=== PATIENT | female | born 1940 | race Caucasian/White ===

== ENCOUNTER → 2019-02-17 | Outpatient (CLI) | payer MEDICARE, OTHER ==
[~2019-02-17] MED LIST: ATOR20 PO; GLUC500 PO; LEVSOD100 PO; METO25ER PO; OMEP10ER PO; OXYB5ER PO; RXTRAM50 PO; TRAM50 PO; VALS80 PO; WARF3 PO
[2019-02-19 14:10] LABS: Stool Occult Bld Immuno 1 Positive (NEGATIVE); Stool Occult Bld Immuno 2 Positive (NEGATIVE)
== END | disposition home or self-care (01) ==
LOC: LAB 07:35 → LAB SHORT 07:35 → LAB FUT 01-20 16:35
PROVIDERS: Internal Medicine Gastroenterology
DX: Z12.11 Encounter for screening for malignant neoplasm of colon (principal); K57.30 Diverticulosis of large intestine without perforation or abscess without bleeding; Z86.010 Personal history of colon polyps
CPT/HCPCS: 82274

== ENCOUNTER 2019-04-06 12:43 | Day surgery (SDC) | payer MEDICARE, OTHER ==
[~2019-04-06] VITALS: Ht 170.2 cm; Wt 97.8 kg
[~2019-04-06 12:43] MED LIST changes: +CITRACAL D + H1 EACH PO; +CRANBERRY250 MG PO; +Cinnamon500 MG PO; +Coq-10100 MG PO; +DICLO GEL1 EACH TOP; +FISH OIL 500 M1 EACH PO; +Flonase 0.05% N16 GM; +GLUCOSAMINE1000 MG PO; +HYDCHL25 PO; +LO-DOSE ASPIRIN81 MG PO; +LOSA50 PO; +MULTI VITAMIN1 EACH PO; +NEBI10 PO; +OXYB5 PO; +Prilosec Otc20 MG PO
== END 2019-04-06 15:51 | disposition home or self-care (01) ==
LOC: ORSCSDS 12:43
PROVIDERS: Internal Medicine Gastroenterology
PROC: 0DBK8ZX Excision of Ascending Colon, Via Natural or Artificial Opening Endoscopic, Diagnostic (ICD-10-PCS; principal; 2019-04-06 14:00)
PROC: 0DBM8ZX Excision of Descending Colon, Via Natural or Artificial Opening Endoscopic, Diagnostic (ICD-10-PCS; principal; 2019-04-06 14:00)
PROC: 0DB68ZX Excision of Stomach, Via Natural or Artificial Opening Endoscopic, Diagnostic (ICD-10-PCS; principal; 2019-04-06 14:00)
DX: R19.5 Other fecal abnormalities (principal); D12.4 Benign neoplasm of descending colon; D12.2 Benign neoplasm of ascending colon; K21.9 Gastro-esophageal reflux disease without esophagitis; K29.70 Gastritis, unspecified, without bleeding; K57.30 Diverticulosis of large intestine without perforation or abscess without bleeding; G47.33 Obstructive sleep apnea (adult) (pediatric); I10 Essential (primary) hypertension; E03.9 Hypothyroidism, unspecified; E78.5 Hyperlipidemia, unspecified; E11.42 Type 2 diabetes mellitus with diabetic polyneuropathy; Z79.899 Other long term (current) drug therapy; Z79.82 Long term (current) use of aspirin
CPT/HCPCS: 82947; 87081; 88305; J2704; J7120

== ENCOUNTER → 2019-04-21 | Outpatient (CLI) | payer MEDICARE, OTHER | END | disposition home or self-care (01) | LOC: LAB EV 09:36 → LAB SHORT 09:36 | DX: N39.0 Urinary tract infection, site not specified (principal) | CPT/HCPCS: 87077; 87086; 87186 ==

== ENCOUNTER → 2019-07-08 | Outpatient (CLI) | payer MEDICARE, OTHER ==
[2019-07-09 14:12] LABS: Stool Occult Bld Immuno 1 Positive (NEGATIVE); Stool Occult Bld Immuno 2 Positive (NEGATIVE)
== END | disposition home or self-care (01) ==
LOC: LAB SHORT 07:30 → LAB 07:30 → LAB FUT 06-22 14:00
PROVIDERS: Internal Medicine Gastroenterology
DX: R19.5 Other fecal abnormalities (principal)
CPT/HCPCS: 82274

== ENCOUNTER → 2020-02-08 | Outpatient (CLI) | payer MEDICARE, OTHER ==
[2020-02-09 13:53] LABS: Stool Occult Bld Immuno 1 Negative (NEGATIVE); Stool Occult Bld Immuno 2 Negative (NEGATIVE)
== END | disposition home or self-care (01) ==
LOC: LAB EV 10:35
PROVIDERS: Internal Medicine Gastroenterology
DX: R19.5 Other fecal abnormalities (principal)
CPT/HCPCS: 82274

== ENCOUNTER 2022-03-23 16:45 | Emergency (ER) | payer MEDICARE, OTHER ==
[~2022-03-23] VITALS: Ht 170.2 cm; Wt 92.5 kg
[2022-03-23 17:25] LABS: BASOPHILS ABSOLUTE AUTO 0.07 K/mm3 (0.00-0.23); BASOPHILS PERCENT AUTO 1 % (0-2); EOSINOPHILS ABSOLUTE AUTO 0.17 K/mm3 (0.00-0.68); EOSINOPHILS PERCENT AUTO 2 % (0-6); Hemoglobin 15.4 g/dL (11.5-16.0); IMMATURE GRAN ABSOLUTE AUTO 0.02 K/mm3 (0.00-0.10); IMMATURE GRAN PERCENT AUTO 0 % (0-1); LYMPHOCYTES ABSOLUTE AUTO 2.79 K/mm3 (0.84-5.20); LYMPHOCYTES PERCENT AUTO 31 % (21-46); MONOCYTES ABSOLUTE AUTO 0.74 K/mm3 (0.16-1.47); MONOCYTES PERCENT AUTO 8 % (4-13); Mean Corpuscular HGB 29.1 pg (26.0-34.0); Mean Corpuscular HGB Conc 33.5 g/dL (31.5-36.5); Mean Corpuscular Volume 87 fL (80-100); Mean Platelet Volume 10.3 fL (9.1-12.4); NEUTROPHILS ABSOLUTE AUTO 5.33 K/mm3 (1.96-9.15); NEUTROPHILS PERCENT AUTO 58 % (41-73); Platelet Count 272 K/mm3 (150-400); RDW Coefficient Variation 13.1 % (11.7-14.2); RDW Standard Deviation 41.5 fL (35.1-46.3); White Blood Cell Count 9.12 K/mm3 (4.00-11.30)
[2022-03-23 17:52] LABS: Albumin, Blood 3.9 g/dL (3.4-5.0); Bilirubin, Total 0.5 mg/dL (0.1-1.0); Bun/Creatinine Ratio 26.7 (12.0-20.0); Calcium, Blood 10.5 mg/dL (8.5-10.1); Creatinine, Blood 0.56 mg/dL (0.40-1.00); Potassium, Blood 3.6 mmol/L (3.5-5.5); Total Protein, Blood 7.9 g/dL (6.4-8.2)
[2022-03-23] MEDS ORDERED: CHLO25B PO (19:52)
[2022-03-23] MEDS ORDERED: SPIRONOLACTONE25 MG PO (19:53)
[2022-03-23] MEDS ORDERED: ATORVASTATIN CA20 MG PO (19:53)
[2022-03-23] MEDS ORDERED: HIPREX1 G1 PO (19:53)
[2022-03-23] MEDS ORDERED: CARTIA XT PO (19:53)
[2022-03-23] MEDS ORDERED: Microlet1 EACH MC (19:54)
[2022-03-23] MEDS ORDERED: NEBIVOLOL HCL20 MG PO (19:54)
== END 2022-03-23 21:03 | disposition home or self-care (01) ==
LOC: ER 16:45
PROVIDERS: Emergency Medicine
DX: I48.91 Unspecified atrial fibrillation (principal); R06.02 Shortness of breath; I10 Essential (primary) hypertension; E03.9 Hypothyroidism, unspecified; E11.9 Type 2 diabetes mellitus without complications; Z88.5 Allergy status to narcotic agent; Z79.82 Long term (current) use of aspirin; Z79.899 Other long term (current) drug therapy
CPT/HCPCS: 36415; 71046; 80053; 83735; 83880; 84484; 85025; 93971; A9270; J3475; J7030

== ENCOUNTER 2022-04-16 09:24 | Inpatient (IN) | payer MEDICARE, OTHER ==
[~2022-04-16] VITALS: Ht 170.2 cm; Wt 95.8 kg
[~2022-04-16 09:24] MED LIST changes: +ATORVASTATIN CA20 MG PO; +CARTIA XT PO; +CHLO25B PO; +HIPREX1 G1 PO; +Microlet1 EACH MC; +NEBIVOLOL HCL20 MG PO; +SPIRONOLACTONE25 MG PO
[2022-04-16 10:32] LABS: BASOPHILS ABSOLUTE AUTO 0.06 K/mm3 (0.00-0.23); BASOPHILS PERCENT AUTO 0 % (0-2); EOSINOPHILS ABSOLUTE AUTO 0.45 K/mm3 (0.00-0.68); EOSINOPHILS PERCENT AUTO 3 % (0-6); Hematocrit 44.6 % (33.0-51.0); Hemoglobin 15.2 g/dL (11.5-16.0); IMMATURE GRAN ABSOLUTE AUTO 0.05 K/mm3 (0.00-0.10); IMMATURE GRAN PERCENT AUTO 0 % (0-1); LYMPHOCYTES ABSOLUTE AUTO 2.84 K/mm3 (0.84-5.20); LYMPHOCYTES PERCENT AUTO 21 % (21-46); MONOCYTES ABSOLUTE AUTO 0.95 K/mm3 (0.16-1.47); MONOCYTES PERCENT AUTO 7 % (4-13); Mean Corpuscular HGB 29.3 pg (26.0-34.0); Mean Corpuscular HGB Conc 34.1 g/dL (31.5-36.5); Mean Corpuscular Volume 86 fL (80-100); Mean Platelet Volume 10.8 fL (9.1-12.4); NEUTROPHILS ABSOLUTE AUTO 9.33 K/mm3 (1.96-9.15); NEUTROPHILS PERCENT AUTO 68 % (41-73); Platelet Count 290 K/mm3 (150-400); RDW Coefficient Variation 12.9 % (11.7-14.2); RDW Standard Deviation 40.3 fL (35.1-46.3); Red Blood Cell Count 5.18 M/mm3 (3.80-5.20); White Blood Cell Count 13.68 K/mm3 (4.00-11.30)
[2022-04-16 10:53] LABS: Bilirubin, Total 0.7 mg/dL (0.1-1.0); Bun/Creatinine Ratio 45.6 (12.0-20.0); Calcium, Blood 10.5 mg/dL (8.5-10.1); Creatinine, Blood 0.72 mg/dL (0.40-1.00); Globulin, Blood 3.9 g/dL (2.2-4.0); Potassium, Blood 4.2 mmol/L (3.5-5.5); Total Protein, Blood 7.9 g/dL (6.4-8.2)
[2022-04-16] MEDS ORDERED: COREG25 MG PO (11:19)
[2022-04-16] MEDS ORDERED: EUTHYROX75 MCG PO (11:21)
[2022-04-16] MEDS ORDERED: LOSA50 PO (11:21)
[2022-04-16] MEDS ORDERED: OXYB5 PO (11:22)
[2022-04-16] MEDS ORDERED: METF500 PO (11:23)
[2022-04-16] MEDS ORDERED: ELIQUIS5 M2 PO (11:24)
[2022-04-16] MEDS ORDERED: SPIR25 PO (11:25)
[2022-04-16 13:10] LABS: Source, Urine Clean Catch
[2022-04-16 13:18] LABS: Appearance, Urine Clear (Clear); Bilirubin, Urine Neg (Neg); Blood, Urine Neg (Neg); Color, Urine Yellow (P-Yellow); Glucose Qualitative, Urine Neg (Neg); Ketones, Urine Neg (Neg); Leukocyte Esterase, Urine Neg (Neg); Nitrite, Urine Neg (Neg); Protein, Urine Neg (Neg); Specific Gravity, Urine 1.025 (1.003-1.022); Urobilinogen, Urine NORM (Normal)
--- NOTE | 2022-04-16 18:17 | NUR ---
ADMIT/SHIFT SUMMARY: PATIENT ADMIT TO PCU 4. ABLE TO STAND AND TRANSFER WITH ONE PERSON ASSIST AND FRONT WHEEL WALKER. DENIES NUMBNESS/TINGLING. PERRLA. WEARING GLASSES. AT BEDSIDE. ON 1-3L NASAL CANNULA NEEDED. LUNGS SOUNDING CLEAR AND DIM IN BASES. SOB WITH EXERTION OR AFIB EPISODES. TELE SHOWING SINUS TACH ON ADMIT WITH HR 90'S. CONVERTED TO AFIB AROUND 1700 WHEN UP TO BATHROOM. HR 130-140'S DR. GUTIÉRREZ CALLED, SEE EMAR FOR PRN IV METOPROLOL ADMINISTRATION. SYMPTOMATIC WITH HR ELEVATED, PATIENT REPORTS FEELING SOB, CLAMMY, AND AT TIMES DIZZY. LAYING IN BED AT THIS TIME WITH FAN IN PLACE. DENIES ABDOMINAL PAIN/NAUSEA. TOLERATING PO DIET. CALL LIGHT IN REACH. CPAP AT BEDSIDE FOR NOC. DENIES NEEDS AT THIS TIME WILL CONTINUE TO MONITOR AND REPORT OFF TO ONCOMING RN. MED REC COMPLETED WITH PATIENT HOME MED LIST, COPIED AND PLACED IN CHART.
[2022-04-16 18:45] LABS: Free Thyroxine 1.22 ng/dL (0.70-1.60)
[2022-04-16 18:46] LABS: Thyroid Stimulating Hormone 2.39 uIU/mL (0.360-4.800)
--- NOTE | 2022-04-16 20:25 | NUR ---
ASSUMED CARE OF PATIENT AT APPROXIMATELY 1910 FROM ROCIO Sorensen RN. PATIENT ALERT AND ORIENTED X4; PATIENT REPORTS FEELING SHORT OF BREATH DUE TO HEART RATE JUMPING UP TO 130'S WHILE LAYING IN BED; HEART 90-130'S DURING BEDSIDE REPORT; NOT SUSTAINING. PATIENT DENIES CP/PRESSURE, PAIN ELSEWHERE, DIZZINESS, AND NAUSEA. PATIENT'S SPOUSE WAS BEDSIDE DURING SHIFT ASSESSMENT. AFIB ON TELE; OXYGEN SATURATION ABOVE 90% ON 1LPM VIA NC; CPAP IN ROOM FOR SLEEP. IVF INFUSING PER ORDER.
--- NOTE | 2022-04-16 21:54 | NUR ---
CALLED DR. LANDA TO REPORT PATIENT'S HEART RATE MAINTAINING 130-140'S WHILE LAYING IN BED AND BP SOFT 97/64; PRN METOPROLOL NOT AVAILABLE AT THIS TIME AND HOME MEDICATIONS NOT SCHEDULED. ORDERS FOR IV METOPROLOL 5MG Q4 PRN FOR HEART RATE OVER 120; HOLD FOR SBP BELOW 90.
--- NOTE | 2022-04-16 22:18 | NUR ---
PRN IV METOPROLOL GIVEN PER ORDER FOR HEART RATE 130-140'S; LOWERED HEART RATE TO 90-110'S
--- NOTE | 2022-04-16 23:51 | NUR ---
CALLED DR. LANDA TO REPORT THAT PATIENT INCREASED OXYGEN NEEDS FROM 1-2 LPM VIA NC TO 5LPM; NOT TOLERATING CPAP DUE TO MASK COVERING TOO MUCH OF FACE; CRACKLES IN RIGHT BASES OF LUNGS; ELEVATED BNP; NS WAS INFUSING AT 100ML/HR CURRENTLY ON HOLD; PATIENT DENIES CHF AND REPORTS NOT ABLE TO LAY FLAT TO SLEEP; ORDERS FOR 20 OF IV LASIX NOW AND STOP FLUIDS. ALSO NOTIFIED DR. LANDA THAT HEART RATE 90'S THEN 120-130'S AND BACK AND FORTH; NO NEW ORDERS; CONTINUE IV METOPROLOL.
--- NOTE | 2022-04-17 03:52 | NUR ---
PATIENT REPORTS FEELING BETTER; URINATED MULTIPLE TIMES AFTER LASIX; TITRATED FROM 7 TO 4LPM VIA NC; HEART RATE HAS BEEN AVERAGING 80'S AND HEART RATE INCREASES TO LOW 100'S WITH AMBULATION; PATIENT ABLE TO LAY HEAD FLAT AND SLEEP.
[2022-04-17 04:05] LABS: BASOPHILS ABSOLUTE AUTO 0.05 K/mm3 (0.00-0.23); BASOPHILS PERCENT AUTO 0 % (0-2); EOSINOPHILS ABSOLUTE AUTO 0.14 K/mm3 (0.00-0.68); EOSINOPHILS PERCENT AUTO 1 % (0-6); Hematocrit 41.6 % (33.0-51.0); IMMATURE GRAN ABSOLUTE AUTO 0.05 K/mm3 (0.00-0.10); IMMATURE GRAN PERCENT AUTO 0 % (0-1); LYMPHOCYTES ABSOLUTE AUTO 2.69 K/mm3 (0.84-5.20); LYMPHOCYTES PERCENT AUTO 20 % (21-46); MONOCYTES ABSOLUTE AUTO 0.97 K/mm3 (0.16-1.47); MONOCYTES PERCENT AUTO 7 % (4-13); Mean Corpuscular HGB 28.9 pg (26.0-34.0); Mean Corpuscular HGB Conc 33.7 g/dL (31.5-36.5); Mean Corpuscular Volume 86 fL (80-100); Mean Platelet Volume 10.9 fL (9.1-12.4); NEUTROPHILS ABSOLUTE AUTO 9.88 K/mm3 (1.96-9.15); NEUTROPHILS PERCENT AUTO 72 % (41-73); Platelet Count 231 K/mm3 (150-400); RDW Coefficient Variation 13.2 % (11.7-14.2); RDW Standard Deviation 41.1 fL (35.1-46.3); Red Blood Cell Count 4.84 M/mm3 (3.80-5.20); White Blood Cell Count 13.78 K/mm3 (4.00-11.30)
[2022-04-17 04:24] LABS: Albumin, Blood 3.6 g/dL (3.4-5.0); Albumin/Globulin Ratio 1.1 (0.8-1.8); Bilirubin, Total 0.7 mg/dL (0.1-1.0); Bun/Creatinine Ratio 37.1 (12.0-20.0); Calcium, Blood 9.6 mg/dL (8.5-10.1); Creatinine, Blood 0.78 mg/dL (0.40-1.00); Globulin, Blood 3.3 g/dL (2.2-4.0); Potassium, Blood 3.5 mmol/L (3.5-5.5); Total Protein, Blood 6.9 g/dL (6.4-8.2)
--- NOTE | 2022-04-17 05:08 | NUR ---
CALLED DR. YORK TO REPORT TROPONIN 603; CONTINUE TO MONITOR
--- NOTE | 2022-04-17 06:42 | NUR ---
PATIENT SLEPT ABOUT FOUR HOURS LAST NIGHT. CURRENTLY ON ROOM AIR. NO OTHER ACUTE CHANGES TO REPORT.
--- NOTE | 2022-04-17 08:14 | NUR ---
AM NOTE: PATIENT ALERT AND ORIENTED X4. NEURO WNL. DENIES NUMBNESS/TINGLING. OVERALL WEAKNESS. ONE PERSON ASSIST TO BSC. SOB AND HR INCREASES WITH ACTIVITY. ON 1L NASAL CANNULA SATING LOW 90'S. TO BRING IN HOME CPAP TODAY, DOES NOT LIKE HOSPITAL CPAP. TELE SHOWING SINUS RHYTHM THIS AM WITH HR 80'S. DENIES CHEST PAIN/PRESSURE. VITAL SIGNS STABLE. TRACE EDEMA TO BLE. NPO THIS AM PENDING CARDIOLOGY CONSULT. [facility] CALLED THIS AM TO CONFIRM CONSULT. IV FLUSHED AND SALINE LOCKED. PATIENT DENIES OVERALL PAINS. ACHS BLOOD SUGAR CHECKS. CALL LIGHT IN REACH. ABLE TO TURN SELF IN BED. DENIES NEEDS AT THIS TIME. WILL CONTINUE TO MONITOR.
--- NOTE | 2022-04-17 13:18 | NUR ---
Patient is lying in bed and alert. Pt's spouse, Jadiel, is bedside but is [place]. Pt explains about the events that led to her hospital stay and about her fears about not discovering the casue of the heart issues and not being able to stop it from happening in the future. She also shares about her life, their 59 yrs of marriage, their two sons and their strong [employer] carolyn. I normalize her experience, and provide anxiety containment, gentle encouragement and prayer. Pt responds well ans hsows signs of improved peace. I will continue to remain available to pateint and family.
--- NOTE | 2022-04-17 14:20 | NUR ---
CRITCAL TROP OF 809, CALLED INTO DR. GUTIÉRREZ. NO NEW ORDERS. PATIENT REMAINS CHEST PAIN/PRESSURE FREE. VITAL SIGNS STABLE. SLEEPING THROUGHOUT THE AFTERNOON. REMAINS ON 1L NASAL CANNULA. CALL LIGHT IN REACH.
--- NOTE | 2022-04-17 18:01 | NUR ---
SHIFT SUMMARY: NO ACUTE CHANGES. PATIENT REMAINS ALERT AND ORIENTED. NEURO WNL. OVERALL WEAK. USING BSC WITH ONE PERSON ASSIST. REMAINS ON 1L NASAL CANNULA SATING ABOVE 92-94%. SOB WITH EXERTION. DENIES COUGH. TELE REMAINS SINUS RHYTHM WITH HR 80'S. NO EPISODES OF AFIB. DENIES CHEST PAIN/PRESSURE. HR UP TO 110'S, WHEN UP TO BSC. DENIES ABDOMINAL PAIN/NAUSEA. TOLERATING PO DIET. BROUGHT IN HOME CPAP, RESPIRATORY CARE IN TO SET UP. ECHO DONE THIS AM, PENDING RESULTS. TROPS PEAKED AND TRENDING DOWN. SALINE LOCKED. EATING DINNER AT THIS TIME. WILL CONTINUE TO MONITOR AND REPORT OFF.
--- NOTE | 2022-04-18 05:00 | NUR ---
SHIFT SUMMARY PATIENT REMAINS ALERT AND ORIENTED X4. 02 SATS >95% ON 1L VIA NC WHILE AWAKE AND CPAP WHILE SLEEPING. DENIES SOB. PATIENT SR MOST THE NIGHT AT 80s, THIS AM AT 0456, AND BACK TO NSR WITHIN 10 MINUTES. A.FIB AT 110. BP STABLE. DENIES CP/PRESSURE. UP TO BEDSIDE COMMODE WITH 1 PERSON ASSIST. NO ACUTE CHANGES. CALL LIGHT IN REACH.
[2022-04-18 08:07] LABS: BASOPHILS ABSOLUTE AUTO 0.06 K/mm3 (0.00-0.23); BASOPHILS PERCENT AUTO 1 % (0-2); EOSINOPHILS ABSOLUTE AUTO 0.23 K/mm3 (0.00-0.68); EOSINOPHILS PERCENT AUTO 3 % (0-6); Hemoglobin 13.5 g/dL (11.5-16.0); IMMATURE GRAN ABSOLUTE AUTO 0.03 K/mm3 (0.00-0.10); IMMATURE GRAN PERCENT AUTO 0 % (0-1); LYMPHOCYTES PERCENT AUTO 26 % (21-46); MONOCYTES PERCENT AUTO 9 % (4-13); Mean Corpuscular HGB 29.2 pg (26.0-34.0); Mean Corpuscular HGB Conc 33.8 g/dL (31.5-36.5); Mean Corpuscular Volume 86 fL (80-100); NEUTROPHILS ABSOLUTE AUTO 5.83 K/mm3 (1.96-9.15); NEUTROPHILS PERCENT AUTO 62 % (41-73); Platelet Count 207 K/mm3 (150-400); RDW Coefficient Variation 12.9 % (11.7-14.2); RDW Standard Deviation 40.7 fL (35.1-46.3); Red Blood Cell Count 4.63 M/mm3 (3.80-5.20); White Blood Cell Count 9.35 K/mm3 (4.00-11.30)
[2022-04-18 08:11] LABS: Albumin, Blood 3.4 g/dL (3.4-5.0); Albumin/Globulin Ratio 0.9 (0.8-1.8); Bilirubin, Total 0.8 mg/dL (0.1-1.0); Bun/Creatinine Ratio 27.8 (12.0-20.0); Calcium, Blood 9.5 mg/dL (8.5-10.1); Creatinine, Blood 0.61 mg/dL (0.40-1.00); Globulin, Blood 3.7 g/dL (2.2-4.0); Potassium, Blood 3.4 mmol/L (3.5-5.5); Total Protein, Blood 7.1 g/dL (6.4-8.2)
--- NOTE | 2022-04-18 16:46 | NUR ---
CARE ASSUMPTION THIS RN ASSUMED CARE FROM [facility] AT 1500. PATIENT IS ALERT AND OREINTED X4. VSS. TELE AFIB 120S-130S. PATIENT DOES FLIP IN AND OUT OF AFIB TO SR. PATIENT REPORTS NO CHEST PAIN/PRESSURE. STRONG RADIAL AND PEDIS. IRREGULAR PULSE. PATIENT REPORTS NO SHORTNESS OF BREATH. LUNG SOUNDS CLEAR. PATIENT REPORTS NO PAIN. SKIN IS CLEAN DRY AND INTACT. ABD IS SOFT NONTENDER AND ACTIVE. PATIENT IS SYMPTOMATIC WITH AFIB STATES SHE CAN FEEL PULSES POUNDING/RACING AND SHORTNESS OF BREATH. PATIENT RECEIVED IV METPOROLOL PER EMAR DUE TO RATE GREATER THAN 120. THIS RN WAS NOTIFED PER TELE THAT PATIENT WENT INTO A FLUTTER. PATIENT IS NOW GOING IN AND OUT FROM SR/AFIB/AFLUTTER. PATIENT REPORTS NO CHANGES DURING THIS EPISODE. CALL LIGHT IS WITHIN REACH AND BED IS IN LOWEST POSITION. WILL CONTINUE TO MONITOR AND PROVIDE CARE.
--- NOTE | 2022-04-18 17:03 | NUR ---
UPDATE SENIOR POWER SCHEDULER IN ROOM TO DISCUSS PLAN OF CARE. DISCUSSED THE PLAN IS TO KEEP PATIENT OUT OF AFIB DUE TO HER BEING SYMPTOMATIC WITH HER AFIB. MD DISCUSSED MANAGING IT WITH MEDICATION AND IF NOT ABLE TO NEXT STEP WOULD BE AN OBLATION. PATIENT UNDERSTOOD AND STATED SHE WANTED TO DO WHAT SHE NEEDED TO DO TO GET BETTER. PATIENT WAS AWARE OF WHAT AN OBLATION IS SINCE HER HAD ONE TWO YEARS AGO.
--- NOTE | 2022-04-18 18:10 | NUR ---
SHIFT SUMMARY PATIENT NEURO REMAINS INTACT. VSS. NO ACUTE CHANGES THIS SHIFT. CALL LIGHT WITHIN REACH AND BED IN LOWEST POSITION. WILL CONTINUE TO MONITOR AND PROVIDE CARE UNTIL HAND OFF WITH NEXT SHFIT.
--- NOTE | 2022-04-19 06:10 | NUR ---
SHIFT SUMMARY Assumed care of pt at 1900, A/Ox4. SBA to BSC. Maintains 94% on RA with mild exertional dyspnea. LS clear on top and dim at bases. Wears home CPAP hs. Converts between SR w/PVC & PAC in the 80's to Aflutter in 130's. It is found that this change occurs most when patient exerts herself (talking, ambulating, eating). Although a few hours after nighttime medication the patient was able to ambulate without switching out of SR. Denies CP/Pressure, BP stable. Will report to tete OLMOS.
[2022-04-19] MEDS ORDERED: Carvedilol12.5 MG PO (14:05)
[2022-04-19] MEDS ORDERED: Amiodarone HCl200 MG PO (14:06)
--- NOTE | 2022-04-19 14:34 | NUR ---
UPDATE DC INSTRUCTIONS PROVIDED TO PT AND SPOUSE. PT EDUCATED ON MEDICATION CHANGES. ALL QUESTIONS ANSWERED. PT TO BE TAKEN OUT BY BEREKET
== END 2022-04-19 14:45 | disposition home or self-care (01) | DRG 280 ==
LOC: ER 09:24 → MEDS 12:02 → PCU 15:31
PROVIDERS: Physician Assistant; ADMIT Family Medicine
DX: I11.0 Hypertensive heart disease with heart failure (principal); I50.31 Acute diastolic (congestive) heart failure; I21.A1 Myocardial infarction type 2; I48.0 Paroxysmal atrial fibrillation; E87.6 Hypokalemia; E11.9 Type 2 diabetes mellitus without complications; M19.90 Unspecified osteoarthritis, unspecified site; K21.00 Gastro-esophageal reflux disease with esophagitis, without bleeding; E78.5 Hyperlipidemia, unspecified; E03.9 Hypothyroidism, unspecified; G47.33 Obstructive sleep apnea (adult) (pediatric); Z96.653 Presence of artificial knee joint, bilateral; R77.8 Other specified abnormalities of plasma proteins; I95.9 Hypotension, unspecified; R79.89 Other specified abnormal findings of blood chemistry; D72.829 Elevated white blood cell count, unspecified; Z98.890 Other specified postprocedural states; Z90.710 Acquired absence of both cervix and uterus; Z98.51 Tubal ligation status; Z90.49 Acquired absence of other specified parts of digestive tract; Z90.11 Acquired absence of right breast and nipple; Z90.6 Acquired absence of other parts of urinary tract; Z88.5 Allergy status to narcotic agent; Z79.84 Long term (current) use of oral hypoglycemic drugs; Z79.01 Long term (current) use of anticoagulants; Z79.899 Other long term (current) drug therapy
CPT/HCPCS: 36415; 71046; 71260; 80053; 81003; 82947; 83880; 84439; 84443; 84484; 85025; 87040; 93005; 93010; 93306; 94660; 94762; 99285-25; A9270; J1940; J7030; Q9967